=== PATIENT | male | born 1965 | race Caucasian/White ===

== ENCOUNTER 2017-06-04 13:51 | Observation (INO) | payer SELFPAY ==
[2017-06-04] MEDS ORDERED: Ketorolac 30 MG/ML SDV IVPUSH ONE (14:02)
[2017-06-04] MEDS ORDERED: Sodium Chloride 0.9% 1,000 ML IV ONE (14:03)
--- NOTE | 2017-06-04 14:04 | EDM.PDOC ---
ED HPI GENERAL MEDICAL PROBLEM - General Chief Complaint: Back Pain or Injury Stated Complaint: BACK PAIN Time Seen by Provider: 06/04/17 14:03 Source of Information: Reports: Patient - History of Present Illness INITIAL COMMENTS - FREE TEXT/NARRATIVE: HISTORY AND PHYSICAL: History of present illness: [Patient presents with low back pain has history of mild intermittent low back pain with no formal medical therapy therapy, it was bothering him somewhat last night prior to bed upon awakening this morning he had 10 out of 10 nonradiating low back pain much difficulty getting to the bathroom today ultimately coming in by ambulance due to pain, pain worsened by movement 5 out of 10 at rest 10 out of 10 with minimal movement nonradiating no footdrop saddle anesthesia bowel or urine symptoms no Injury or traumaPer patient ] Review of systems: As per history of present illness and below otherwise all systems reviewed and negative. Past medical history: As per history of present illness and as reviewed below otherwise noncontributory. Surgical history: As per history of present illness and as reviewed below otherwise noncontributory. Social history: No reported history of drug or alcohol abuse. Family history: As per history of present illness and as reviewed below otherwise noncontributory. Physical exam: HEENT: Atraumatic, normocephalic, pupils reactive, negative for conjunctival pallor or scleral icterus, mucous membranes moist, throat clear, neck supple, nontender, trachea midline. Lungs: Clear to auscultation, breath sounds equal bilaterally, chest nontender. Heart: S1S2, regular, negative for clicks, rubs, or JVD. Abdomen: Soft, nondistended, nontender. Negative for masses or hepatosplenomegaly. Negative for costovertebral tenderness. Pelvis: Stable nontender. Genitourinary: Deferred. Rectal: Deferred. Extremities: Atraumatic, negative for cords or calf pain. Neurovascular unremarkable. Neuro: Awake, alert, oriented. Cranial nerves II through XII unremarkable. Cerebellum unremarkable. Motor and sensory unremarkable throughout. Exam nonfocal. Diagnostics: [Lumbar spine ] Therapeutics: [1 L normal saline bolus Toradol 30 mg IV Norflex 60 mg IV ] Impression: Intractable pain [ low back pain ] Definitive disposition and diagnosis as appropriate pending reevaluation and review of above. back Pain Score (Numeric/FACES): 4 - Related Data Allergies Allergy/AdvReac Type Severity Reaction Status Date / Time No Known Allergies Allergy Verified 06/04/17 13:56 Home Meds: Home Meds Albuterol Sulfate [Albuterol Sulfate HFA] 1 - 2 inh INH PRN 01/12/14 [History] Losartan/Hydrochlorothiazide [Losartan-HCTZ 100-25 MG] 1 tab PO BRK 01/12/14 [ History] Past Medical History Cardiovascular History: Reports: Hypertension Musculoskeletal History: Reports: Back Pain, Chronic - Past Surgical History GI Surgical History: Reports: Hernia Repair/Other Social & Family History - Family History Family Medical History: Unobtainable - Tobacco Use Smoking Status *Q: Current Every Day Smoker Years of Tobacco use: 40 Packs/Tins Daily: 1 - Caffeine Use Caffeine Use: Reports: Coffee, Energy Drinks, Soda - Alcohol Use Days Per Week of Alcohol Use: 7 Number of Drinks Per Day: 6 Total Drinks Per Week: 42 - Recreational Drug Use Recreational Drug Use: Yes Drug Use in Last 12 Months: Yes Recreational Drug Type: Reports: Marijuana/Hashish Recreational Drug Use Frequency: Weekly ED ROS GENERAL - Review of Systems Review Of Systems: ROS reveals no pertinent complaints other than HPI. ED EXAM, GENERAL - Physical Exam Exam: See Below Course - Vital Signs Last Recorded V/S: Last Vital Signs Temp 96.9 F 06/04/17 13:53 Pulse 73 06/04/17 13:53 Resp 18 06/04/17 13:53 BP 189/106 H 06/04/17 13:53 Pulse Ox 97 06/04/17 13:53 - Orders/Labs/Meds Meds: Medications Discontinued Medications Generic Name Dose Route Start Last Admin Trade Name Timo PRN Reason Stop Dose Admin Sodium Chloride 1,000 mls @ 999 mls/hr 06/04/17 14:03 06/04/17 14:11 Normal Saline IV 06/04/17 15:03 999 mls/hr STAT ONE Administration Ketorolac Tromethamine 30 mg 06/04/17 14:02 06/04/17 14:10 Toradol IVPUSH 06/04/17 14:03 30 mg ONETIME ONE Administration Orphenadrine Citrate 60 mg 06/04/17 14:02 06/04/17 14:11 Norflex IV 06/04/17 14:03 60 mg NOW STA Administration Departure - Departure Time of Disposition: 15:59 Disposition: Refer to Observation Condition: Fair Clinical Impression: Intractable pain - Discharge Information Referrals: PCP,None [Primary Care Provider] - Forms: ED Department Discharge
--- NOTE | 2017-06-04 15:16 | CR ---
EXAMINATION: Lumbar spine HISTORY: Pain COMPARISON: None TECHNIQUE: AP and lateral view FINDINGS: The lumbar spinal alignment is normal. The vertebral body heights appear well maintained. M ild marginal osteophytes. SI joints are symmetric. Moderate joint space narrowing and subchondral scl erosis and cystic change noted within the right hip. No fracture or acute osseous or metallic. IMPRESSION: 1. Mild degenerative changes noted within the lumbar spine and moderately within the right hip.
[2017-06-04] MEDS ORDERED: Ondansetron 4 MG/2 ML SDV IVPUSH PRN (18:35)
[2017-06-04] MEDS ORDERED: Sodium Chloride 0.9% 10 ML Syringe FLUSH PRN (18:35)
[2017-06-04] MEDS ORDERED: Sodium Chloride 0.9% 2.5 ML Syringe FLUSH PRN (18:35)
[2017-06-04] MEDS ORDERED: Acetaminophen/HYDROcodone 325-5 MG Tab PO PRN (18:38)
[2017-06-04] MEDS ORDERED: SILDENAFIL 100 MG PO PRN (18:38)
[2017-06-04] MEDS ORDERED: Enoxaparin 40 MG/0.4 ML Syringe SUBCUT SCH (18:45)
[2017-06-04] MEDS: Cyclobenzaprine 10 MG Tab PO PRN (18:50)
[2017-06-04] MEDS: Acetaminophen/HYDROcodone 325-5 MG Tab PO PRN (18:50)
[2017-06-04] MEDS ORDERED: Albuterol/Ipratropium 3.0-0.5 MG/3 ML Neb Soln NEB PRN (19:12)
[2017-06-04 19:27] LABS: CHLORIDE,CL 106 mmol/L (98-107); SODIUM,NA 139 mmol/L (136-148)
[2017-06-04] MEDS: Famotidine 20 MG Tab PO SCH (20:46)
[2017-06-04] MEDS: methylPREDNISolone Sodium Succinate 40 MG/1 ML SDV IVPUSH SCH (20:46)
[2017-06-04] MEDS ORDERED: Ketorolac 15 MG/ML SDV IVPUSH PRN (22:00)
[2017-06-05] MEDS: methylPREDNISolone Sodium Succinate 40 MG/1 ML SDV IVPUSH SCH ×3 (01:33→14:06)
[2017-06-05] MEDS: Cyclobenzaprine 10 MG Tab PO PRN (06:30)
[2017-06-05] MEDS: Acetaminophen/HYDROcodone 325-5 MG Tab PO PRN ×2 (06:30→14:06)
[2017-06-05] MEDS ORDERED: Hydrochlorothiazide/Losartan 12.5-50 mg Tab PO SCH (08:00)
[2017-06-05] MEDS: Famotidine 20 MG Tab PO SCH (08:14)
--- NOTE | 2017-06-05 11:29 | PCM.HP ---
H&P History of Present Illness - General Date of Service: 06/04/17 Admit Problem/Dx: Admission Diagnosis/Problem Admission Diagnosis/Problem Severe back pain radiating down the legs Source of Information: Patient - History of Present Illness Initial Comments - Free Text/Narative: Patient 51 y old man with PMhx of hypertension, obesity, asthma , presented to hospital due to severe back pain , patient couldn't get out of bed today. His back pain started 2 weeks ago when he slept on a couch in his daughter's house. Pain is severe , radiating in both legs.Denies any problems with bm , urinations. No fever , no leg weakness , no history of trauma. He also c/o cough productive of green phlegm and wheezing. Onset of Symptoms: Reports: Gradual Duration of Symptoms: Reports: Week(s): Location: Reports: Back Quality: Reports: Throbbing back Pain Score (Numeric/FACES): 6 - Related Data Allergies/Adverse Reactions: Allergies Allergy/AdvReac Type Severity Reaction Status Date / Time No Known Allergies Allergy Verified 06/04/17 13:56 Home Medications: Home Meds Losartan/Hydrochlorothiazide [Losartan-HCTZ 100-25 MG] 100 mg PO BRK 01/12/14 [ History] Hydrocodone/Acetaminophen [Hydrocodon-Acetaminophen 5-325] 5 mg PO Q4H PRN 06/04 [History] Sildenafil [Viagra] 100 mg PO DAILY PRN 06/04/17 [History] Acetaminophen/HYDROcodone [[place] 325-5 MG] 2 tab PO Q4H PRN #80 tablet 06/05/17 [Rx] Albuterol [IJD: Albuterol HFA] 1 puff INH Q4H PRN 30 Days #1 inhaler 06/05/17 [ Rx] Cyclobenzaprine [Flexeril] 10 mg PO TID PRN 10 Days #30 tablet 06/05/17 [Rx] Famotidine [Pepcid] 20 mg PO DAILY 30 Days #30 tablet 06/05/17 [Rx] Fluticasone/Salmeterol [Advair 250-50] 2 puff INH BID #1 diskus 06/05/17 [Rx] Minocycline [Minocin] 50 mg PO BID 10 Days #20 cap 06/05/17 [Rx] Naproxen 500 gm MC BID 10 Days #40 tab 06/05/17 [Rx] Past Medical History Cardiovascular History: Reports: Hypertension Respiratory History: Reports: Asthma Musculoskeletal History: Reports: Back Pain, Chronic - Past Surgical History GI Surgical History: Reports: Hernia Repair/Other Social & Family History - Family History Family Medical History: Unobtainable - Tobacco Use Smoking Status *Q: Current Every Day Smoker Years of Tobacco use: 40 Packs/Tins Daily: 1 Used Tobacco, but Quit: No - Caffeine Use Caffeine Use: Reports: Coffee, Energy Drinks, Soda - Alcohol Use Days Per Week of Alcohol Use: 7 Number of Drinks Per Day: 6 Total Drinks Per Week: 42 Date of Last Drink: 06/03/17 Time of Last Drink: 20:00 - Recreational Drug Use Recreational Drug Use: Yes Drug Use in Last 12 Months: Yes Recreational Drug Type: Reports: Marijuana/Hashish Recreational Drug Use Frequency: Weekly H&P Review of Systems - Review of Systems: Review Of Systems: See Below General: Reports: No Symptoms HEENT: Reports: Other (facial rash ) Pulmonary: Reports: Wheezing, Cough, Sputum Cardiovascular: Reports: No Symptoms Gastrointestinal: Reports: No Symptoms Genitourinary: Reports: No Symptoms Musculoskeletal: Reports: Back Pain Skin: Reports: Rash (face) Psychiatric: Reports: No Symptoms Exam - Exam Exam: See Below - Vital Signs Vital Signs: Last Vital Signs Temp 98.0 F 06/05/17 07:39 Pulse 88 06/05/17 09:18 Resp 18 06/05/17 07:39 BP 148/95 H 06/05/17 09:18 Pulse Ox 92 L 06/05/17 09:18 Weight: 220 lb - Exam General: Alert, Oriented HEENT: Conjunctiva Clear Neck: Supple, Trachea Midline Lungs: Decreased Breath Sounds, Wheezing Cardiovascular: Regular Rate, Regular Rhythm, Normal S1, Normal S2 - Patient Data Lab Results Last 24 hrs: Laboratory Results - last 24 hr 06/04/17 06/04/17 Range/Units 18:52 18:52 WBC 8.29 (4.0-11.0) K/uL RBC 4.85 (4.50-5.90) M/uL Hgb 16.1 (13.0-17.0) g/dL Hct 43.1 (38.0-50.0) % MCV 88.9 (80.0-98.0) fL MCH 33.2 H (27.0-32.0) pg MCHC 37.4 H (31.0-37.0) g/dL RDW Std Deviation 40.5 (28.0-62.0) fl RDW Coeff of Femi 13 (11.0-15.0) % Plt Count 139 L (150-400) K/uL MPV 10.20 (7.40-12.00) fL Neut % (Auto) 61.8 (48.0-80.0) % Lymph % (Auto) 25.7 (16.0-40.0) % Hood % (Auto) 7.4 (0.0-15.0) % Eos % (Auto) 4.3 (0.0-7.0) % Baso % (Auto) 0.8 (0.0-1.5) % Neut # (Auto) 5.1 (1.4-5.7) K/uL Lymph # (Auto) 2.1 (0.6-2.4) K/uL Hood # (Auto) 0.6 (0.0-0.8) K/uL Eos # (Auto) 0.4 (0.0-0.7) K/uL Baso # (Auto) 0.1 (0.0-0.1) K/uL Nucleated RBC % 0.0 /100WBC Nucleated RBCs # 0 K/uL Sodium 139 (136-148) mmol/L Potassium 3.0 L (3.5-5.1) mmol/L Chloride 106 (98-107) mmol/L Carbon Dioxide 23.8 (21.0-32.0) mmol/L BUN 10 (7.0-18.0) mg/dL Creatinine 0.9 (0.8-1.3) mg/dL Est Cr Clr Drug Dosing 100.26 mL/min Estimated GFR (MDRD) > 60.0 ml/min Glucose 121 H (74-106) mg/dL Calcium 8.9 (8.5-10.1) mg/dL Result Diagrams: 06/04/17 18:52 06/04/17 18:52 Imaging Impressions Last 24 hrs: lumbar spine x ray : mild degenerative changes in the lumbar spine and moderate arthritis in the right hip - Problem List (1) Arthritis of right hip SNOMED Code(s): 93982377 ICD Code: M16.11 - UNILATERAL PRIMARY OSTEOARTHRITIS, RIGHT HIP Status: Acute Current Visit: Yes Problem List Initiated/Reviewed/Updated: Yes Orders Last 24hrs: Active Orders 24 hr Category Date Time Status Patient Status [ADT] Routine ADT 06/04/17 18:35 Active Oxygen Therapy [RC] PRN Care 06/04/17 18:35 Active RT Aerosol Therapy [RC] ASDIRECTED Care 06/04/17 19:12 Active Up ad [place]onna [RC] ASDIRECTED Care 06/04/17 18:35 Active Vital Signs [RC] Q4H Care 06/04/17 18:35 Active PT Evaluation and Treatment [CONS] Routine Cons 06/04/17 18:35 Active 2 Gram Sodium Diet [DIET] Diet 06/04/17 Dinner Active Lumbar Spine Comp wo Cont [MR] Routine Exams 06/04/17 19:12 Ordered Acetaminophen/HYDROcodone [[place] 325-5 MG] Med 06/04/17 18:38 Active 1 tab PO Q4H PRN Acetaminophen/HYDROcodone [[place] 325-5 MG] Med 06/04/17 18:35 Active 2 tab PO Q4H PRN Albuterol/Ipratropium [DuoNeb 3.0-0.5 MG/3 ML] Med 06/04/17 19:12 Active 3 ml NEB Q4HRRT PRN Cyclobenzaprine [Flexeril] Med 06/04/17 18:38 Active 10 mg PO TID PRN Famotidine [Pepcid] Med 06/04/17 19:15 Active 20 mg PO DAILY Hydrochlorothiazide/Losartan [Hyzaar 50-12.5 MG] Med 06/05/17 08:00 Active 2 tab PO BRK Ketorolac [Toradol] Med 06/04/17 22:00 Active 30 mg IVPUSH Q8H PRN Minocycline [Minocin] Med 06/05/17 09:00 Active 50 mg PO BID Ondansetron [Zofran] Med 06/04/17 18:35 Active 4 mg IVPUSH Q4H PRN Patient's Own Medication [Ptom] Med 06/04/17 18:38 Active 1 each PO DAILY PRN Sodium Chloride 0.9% [Saline Flush] Med 06/04/17 18:35 Active 10 ml FLUSH ASDIRECTED PRN Sodium Chloride 0.9% [Saline Flush] Med 06/04/17 18:35 Active 2.5 ml FLUSH ASDIRECTED PRN methylPREDNISolone Sod Succ [Solu-MEDROL] Med 06/04/17 19:00 Active 40 mg IVPUSH Q6H Peripheral IV Insertion Adult [OM.PC] Routine Oth 06/04/17 18:35 Ordered Resuscitation Status Routine Resus Stat 06/04/17 18:35 Ordered Medication Orders Hydrocodone Bitart/Acetaminophen ([place] 325-5 Mg) 2 tab PO Q4H PRN PRN Reason: Pain (moderate 4-6) Last Admin: 06/05/17 06:30 Dose: 2 tab Admin: 06/04/17 18:50 Dose: 2 tab Hydrocodone Bitart/Acetaminophen ([place] 325-5 Mg) 1 tab PO Q4H PRN PRN Reason: Pain Albuterol/Ipratropium (Duoneb 3.0-0.5 Mg/3 Ml) 3 ml NEB Q4HRRT PRN PRN Reason: sob Cyclobenzaprine HCl (Flexeril) 10 mg PO TID PRN PRN Reason: back pain Last Admin: 06/05/17 06:30 Dose: 10 mg Admin: 06/04/17 18:50 Dose: 10 mg Famotidine (Pepcid) 20 mg PO DAILY [facility] Last Admin: 06/05/17 08:14 Dose: 20 mg Admin: 06/04/17 20:46 Dose: 20 mg HCTZ/Losartan Potassium (Hyzaar 50-12.5 Mg) 2 tab PO BRK [facility] Last Admin: 06/05/17 08:14 Dose: 2 tab Ketorolac Tromethamine (Toradol) 30 mg IVPUSH Q8H PRN PRN Reason: Pain Stop: 06/09/17 22:01 Methylprednisolone Sodium Succinate (Solu-Medrol) 40 mg IVPUSH Q6H [facility] Last Admin: 06/05/17 06:25 Dose: 40 mg Admin: 06/05/17 01:33 Dose: 40 mg Admin: 06/04/17 20:46 Dose: 40 mg Minocycline HCl (Minocin) 50 mg PO BID [facility] Last Admin: 06/05/17 10:19 Dose: 50 mg Ondansetron HCl (Zofran) 4 mg IVPUSH Q4H PRN PRN Reason: Nausea Sildenafil [Viagra] (100 Mg) 1 each PO DAILY PRN PRN Reason: Other Sodium Chloride (Saline Flush) 10 ml FLUSH ASDIRECTED PRN PRN Reason: Keep Vein Open Sodium Chloride (Saline Flush) 2.5 ml FLUSH ASDIRECTED PRN PRN Reason: Keep Vein Open Assessment/Plan Comment:: assessment and plan 1)sciatica radiating in both legs - will admit patient to medical surgical floor , will start patient on toradol 30 grams iv q 6 h , narco 325/5 mg po q 4 h prn for pain , flexeryl 10 mg po tid , physical therapy consult 2)Copd exac- will give patient solumedrol iv , advair nebulizer treatment , duoneb nebulizer treatment minocycline 50 mg po Bid 3) Rosea : minocycline 50 mg po bid 4) DVT profilaxis- heparin sq
[2017-06-05 12:17] VITALS: BP 143/90
--- NOTE | 2017-06-05 13:06 | PCM.DCSUM1 ---
Discharge Summary - Discharge Data Discharge Date: 06/05/17 Discharge Disposition: Home, Self-Care 01 Condition: Good - Patient Summary/Data Consults: Consultations 06/04/17 18:35 PT Evaluation and Treatment [CONS] Routine Hospital Course: Patient admitted in the hospital with severe back pain , unable to get out of bed , pain started 2 weeks ago and was localized in the lower back. He was treated in the hospital with toradol iv , pain medication and muscle relaxants . Patient pain improved , had physical therapy and recommended he should walk with one point cane. He also had MRI of the back , results pending . X ray lumbar showed mild arthritis of the back and moderate arthritis of the right hip. Patient was discharged home to f/up with PCP and with orthopedic doctor He is also a smoker and had wheezing and cough productive of green phlegm and was treated with iv Solumedrol and nebulizer treatment and was started on Minoycline 50 mg po BID , for COPD exacerbation , and also to cover for facial rosacea. Patient was discharged home with Advair and Albuterol inhaler and prednisone taper , minocycline po , f/up with PCP - Patient Instructions Diet: Low Sodium Activity: As Tolerated Driving: May Drive Today Showering/Bathing: June Shower - Discharge Plan Prescriptions/Med Rec: Acetaminophen/HYDROcodone [[place] 325-5 MG] 2 tab PO Q4H PRN #80 tablet PRN Reason: Pain (Moderate 4-6) Albuterol [IJD: Albuterol HFA] 1 puff INH Q4H PRN 30 Days #1 inhaler PRN Reason: sob Cyclobenzaprine [Flexeril] 10 mg PO TID PRN 10 Days #30 tablet PRN Reason: back pain Famotidine [Pepcid] 20 mg PO DAILY 30 Days #30 tablet Fluticasone/Salmeterol [Advair 250-50] 2 puff INH BID #1 diskus Minocycline [Minocin] 50 mg PO BID 10 Days #20 cap Naproxen 500 gm MC BID 10 Days #40 tab Home Medications: Home Meds Losartan/Hydrochlorothiazide [Losartan-HCTZ 100-25 MG] 100 mg PO BRK 01/12/14 [ History] Hydrocodone/Acetaminophen [Hydrocodon-Acetaminophen 5-325] 5 mg PO Q4H PRN 06/04 [History] Sildenafil [Viagra] 100 mg PO DAILY PRN 06/04/17 [History] Acetaminophen/HYDROcodone [[place] 325-5 MG] 2 tab PO Q4H PRN #80 tablet 06/05/17 [Rx] Albuterol [IJD: Albuterol HFA] 1 puff INH Q4H PRN 30 Days #1 inhaler 06/05/17 [ Rx] Cyclobenzaprine [Flexeril] 10 mg PO TID PRN 10 Days #30 tablet 06/05/17 [Rx] Famotidine [Pepcid] 20 mg PO DAILY 30 Days #30 tablet 06/05/17 [Rx] Fluticasone/Salmeterol [Advair 250-50] 2 puff INH BID #1 diskus 06/05/17 [Rx] Minocycline [Minocin] 50 mg PO BID 10 Days #20 cap 06/05/17 [Rx] Naproxen 500 gm MC BID 10 Days #40 tab 06/05/17 [Rx] Patient Handouts: Acetaminophen; Hydrocodone tablets or capsules, Naproxen; Sumatriptan tablets, Cyclobenzaprine tablets, Albuterol inhalation aerosol, Minocycline tablets or capsules, Fluticasone; Salmeterol inhalation aerosol Referrals: Carmen Murphy MD [Physician] - Jack Browne MD [Physician] - - Discharge Summary/Plan Comment DC Time >30 min.: Yes - General Info Date of Service: 06/05/17 Admission Dx/Problem (Free Text: Admission Diagnosis/Problem Admission Diagnosis/Problem Severe back pain radiating down the legs - Review of Systems General: Reports: No Symptoms HEENT: Reports: No Symptoms Pulmonary: Reports: No Symptoms, Cough Cardiovascular: Reports: No Symptoms Gastrointestinal: Reports: No Symptoms Genitourinary: Reports: No Symptoms Musculoskeletal: Reports: No Symptoms, Back Pain Skin: Reports: No Symptoms Neurological: Reports: No Symptoms Psychiatric: Reports: No Symptoms - Patient Data Vitals - Most Recent: Last Vital Signs Temp 97.8 F 06/05/17 12:00 Pulse 83 06/05/17 12:00 Resp 16 06/05/17 12:00 BP 143/90 H 06/05/17 12:00 Pulse Ox 91 L 06/05/17 12:00 Weight - Most Recent: 220 lb I&O - Last 24 hours: Intake & Output 06/04/17 06/05/17 06/05/17 22:59 06:59 14:59 Intake Total 300 Balance 300 Lab Results - Last 24 hrs: Laboratory Results - last 24 hr 06/04/17 06/04/17 Range/Units 18:52 18:52 WBC 8.29 (4.0-11.0) K/uL RBC 4.85 (4.50-5.90) M/uL Hgb 16.1 (13.0-17.0) g/dL Hct 43.1 (38.0-50.0) % MCV 88.9 (80.0-98.0) fL MCH 33.2 H (27.0-32.0) pg MCHC 37.4 H (31.0-37.0) g/dL RDW Std Deviation 40.5 (28.0-62.0) fl RDW Coeff of Femi 13 (11.0-15.0) % Plt Count 139 L (150-400) K/uL MPV 10.20 (7.40-12.00) fL Neut % (Auto) 61.8 (48.0-80.0) % Lymph % (Auto) 25.7 (16.0-40.0) % [place] % (Auto) 7.4 (0.0-15.0) % Eos % (Auto) 4.3 (0.0-7.0) % Baso % (Auto) 0.8 (0.0-1.5) % Neut # (Auto) 5.1 (1.4-5.7) K/uL Lymph # (Auto) 2.1 (0.6-2.4) K/uL [place] # (Auto) 0.6 (0.0-0.8) K/uL Eos # (Auto) 0.4 (0.0-0.7) K/uL Baso # (Auto) 0.1 (0.0-0.1) K/uL Nucleated RBC % 0.0 /100WBC Nucleated RBCs # 0 K/uL Sodium 139 (136-148) mmol/L Potassium 3.0 L (3.5-5.1) mmol/L Chloride 106 (98-107) mmol/L Carbon Dioxide 23.8 (21.0-32.0) mmol/L BUN 10 (7.0-18.0) mg/dL Creatinine 0.9 (0.8-1.3) mg/dL Est Cr Clr Drug Dosing 100.26 mL/min Estimated GFR (MDRD) > 60.0 ml/min Glucose 121 H (74-106) mg/dL Calcium 8.9 (8.5-10.1) mg/dL Med Orders - Current: Current Medications Hydrocodone Bitart/Acetaminophen ([place] 325-5 Mg) 2 tab PO Q4H PRN PRN Reason: Pain (moderate 4-6) Last Admin: 06/05/17 06:30 Dose: 2 tab Hydrocodone Bitart/Acetaminophen ([place] 325-5 Mg) 1 tab PO Q4H PRN PRN Reason: Pain Albuterol/Ipratropium (Duoneb 3.0-0.5 Mg/3 Ml) 3 ml NEB Q4HRRT PRN PRN Reason: sob Cyclobenzaprine HCl (Flexeril) 10 mg PO TID PRN PRN Reason: back pain Last Admin: 06/05/17 06:30 Dose: 10 mg Famotidine (Pepcid) 20 mg PO DAILY [facility] Last Admin: 06/05/17 08:14 Dose: 20 mg HCTZ/Losartan Potassium (Hyzaar 50-12.5 Mg) 2 tab PO BRK [facility] Last Admin: 06/05/17 08:14 Dose: 2 tab Ketorolac Tromethamine (Toradol) 30 mg IVPUSH Q8H PRN PRN Reason: Pain Stop: 06/09/17 22:01 Methylprednisolone Sodium Succinate (Solu-Medrol) 40 mg IVPUSH Q6H [facility] Last Admin: 06/05/17 06:25 Dose: 40 mg Minocycline HCl (Minocin) 50 mg PO BID [facility] Last Admin: 06/05/17 10:19 Dose: 50 mg Ondansetron HCl (Zofran) 4 mg IVPUSH Q4H PRN PRN Reason: Nausea Sildenafil [Viagra] (100 Mg) 1 each PO DAILY PRN PRN Reason: Other Sodium Chloride (Saline Flush) 10 ml FLUSH ASDIRECTED PRN PRN Reason: Keep Vein Open Sodium Chloride (Saline Flush) 2.5 ml FLUSH ASDIRECTED PRN PRN Reason: Keep Vein Open Discontinued Medications Enoxaparin Sodium (Lovenox) 40 mg SUBCUT Q24H [facility] Last Admin: 06/04/17 20:30 Dose: Not Given Sodium Chloride (Normal Saline) 1,000 mls @ 999 mls/hr IV STAT ONE Stop: 06/04/17 15:03 Last Admin: 06/04/17 14:11 Dose: 999 mls/hr Ketorolac Tromethamine (Toradol) 30 mg IVPUSH ONETIME ONE Stop: 06/04/17 14:03 Last Admin: 06/04/17 14:10 Dose: 30 mg Minocycline HCl (Minocin) 50 mg PO BID [facility] Last Admin: 06/05/17 09:44 Dose: Not Given Orphenadrine Citrate (Norflex) 60 mg IV NOW STA Stop: 06/04/17 14:03 Last Admin: 06/04/17 14:11 Dose: 60 mg Minocycline 50 Mg (Cap) 50 each PO BID ODALIS - Exam General: Reports: Alert, Oriented HEENT: Reports: Pupils Equal, Pupils Reactive Neck: Reports: Supple, Trachea Midline, No JVD, No Thyromegaly Lungs: Reports: Clear to Auscultation, Decreased Breath Sounds Cardiovascular: Reports: Regular Rate, Regular Rhythm, No Murmurs, Irregular Rhythm GI/Abdominal Exam: Normal Bowel Sounds, Soft, Non-Tender, No Distention Extremities: Normal Inspection Skin: Reports: Warm, Dry, Intact Neurological: Reports: No New Focal Deficit Psy/Mental Status: Reports: Alert, Normal Affect, Normal Mood
[2017-06-05] MEDS ORDERED: Potassium Chloride 20 MEQ Tab.ER PO ONE (14:23)
--- NOTE | 2017-06-07 11:38 | MR ---
EXAM DATE: 06/04/17 PATIENT'S AGE: 51 Patient: MITCHELL UNGER Facility: [place], [place] Site . Site : [id number] Study: MRI Spine Lumbar [id number] 2:57:19 PM Ordering Physician: Stephon Whitlock Final Report: HISTORY: Low back pain. TECHNIQUE: Sagittal T1, T2 and STIR, axial T1 and T2 weighted images were obtained of the lumbar spine without contrast administration. COMPARISON: No prior. FINDINGS: The conus medullaris terminates in normal position. The distal cord is of normal signal intensity and morphology. There is no intradural mass. Benign vertebral body hemangioma present within L1 as seen on sagittal T1 image #13 of series 301. There is no acute lumbar fracture. - At L5-S1, loss of disc height. Large annular disc bulge. Combination of type 1 and type 2 degenerative endplate changes. No impingement on the S1 nerve roots within the lateral recesses. The bilateral neural foramina are mildly stenotic. At L4-L5, mild disc desiccation. Shallow left foraminal protrusion. Mild left foraminal stenosis. The central canal and right neural foramina are patent. Facet joint degenerative arthrosis. At L3-L4, loss of disc height with disc desiccation. Posterior annular high- intensity zone with associated small central disc extrusion. Mild ventral thecal sac effacement with mild central canal narrowing. Slight inferior foraminal effacement without significant foraminal stenosis. At L2-L3, disc desiccation. No central canal or foraminal stenosis. At L1-L2, mild disc desiccation. No canal or foraminal stenosis. At T12-L1, mild disc desiccation. No canal or foraminal stenosis. 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 There are degenerative changes of the sacroiliac joints. IMPRESSION: 1. Degenerative disc and facet joint disease. 2. At the L5-S1, there is a large annular disc bulge. Mild bilateral foraminal stenosis. Combination of type 1 and type 2 degenerative endplate changes. 3. At L3-L4, small central disc extrusion with ventral thecal sac effacement and mild canal stenosis. Mild inferior foraminal effacement without impingement on exiting nerve roots. 4. At L4-L5, mild left foraminal stenosis. Dictated by Enrico Hernandez MD @ 06/05/2017 3:23:28 PM Dictated by: Enrico Hernandez MD @ 06/05/2017 15:23:33 (Electronic Signature) Report Signed by Proxy. FUNMILAYO
== END 2017-06-05 15:40 | disposition home or self-care (01) ==
LOC: MW.ED 13:51 → MW.MS 16:00
PROVIDERS: ADMIT Internal Medicine; ATTEND Internal Medicine
DX: M54.32 Sciatica, left side (principal); M54.31 Sciatica, right side; L42 Pityriasis rosea; M16.11 Unilateral primary osteoarthritis, right hip; I10 Essential (primary) hypertension; E66.9 Obesity, unspecified; G89.29 Other chronic pain; F17.210 Nicotine dependence, cigarettes, uncomplicated; J44.1 Chronic obstructive pulmonary disease with (acute) exacerbation; Z79.899 Other long term (current) drug therapy
CPT/HCPCS: 36415; 72100; 72148; 80048; 85025; 96361; 96374; 96375; 97161; 99285; A9270; J1885; J2360; J2920; J7040; 96376; G0378

== ENCOUNTER 2019-01-28 22:32 | Emergency (ER) | payer SELFPAY ==
--- NOTE | 2019-01-28 22:47 | EDM.PDOC ---
ED HPI GENERAL MEDICAL PROBLEM - General Chief Complaint: General Stated Complaint: LAW ENFORCEMENT Time Seen by Provider: 01/28/19 22:39 - History of Present Illness INITIAL COMMENTS - FREE TEXT/NARRATIVE: HISTORY AND PHYSICAL: History of present illness: Patient is a 53-year-old male with a known history of hypertension who follows with the nurse practitioner at [facility] and presents with loss enforcement for medical clearance exam due to his history of hypertension. The patient says he is compliant with his medication but he has been eating a lot of salty foods lately and is aware that his blood pressure is slightly elevated here in the ED. He denies any complaints of chest pain shortness of breath headache numbness tingling and says he would not be here if it were not due to the police and fire dispatcher's insistence. He did drink beer earlier today and admits to that and did eat food. He has no other systemic complaints and says he will follow-up with his provider in the clinic. There was no trauma involving the patient's arrest Review of systems: As per history of present illness and below otherwise all systems reviewed and negative. Past medical history: As per history of present illness and as reviewed below otherwise noncontributory. Surgical history: As per history of present illness and as reviewed below otherwise noncontributory. Social history: No reported history of drug or alcohol abuse. Family history: As per history of present illness and as reviewed below otherwise noncontributory. Physical exam: Old developed well-nourished man who is nontoxic and interactive with me in the ED speaking clearly. Vital signs are noted by me HEENT: Atraumatic, normocephalic, pupils reactive, negative for conjunctival pallor or scleral icterus, mucous membranes moist, throat clear, neck supple, nontender, trachea midline. Lungs: Clear to auscultation, breath sounds equal bilaterally, chest nontender. Heart: S1S2, regular rate and rhythm no overt murmurs Abdomen: Soft, nondistended, nontender. NABS. Negative for costovertebral tenderness. Pelvis: Stable nontender. Genitourinary: Deferred. Rectal: Deferred. Extremities: Atraumatic, negative for cords or calf pain. Neurovascular unremarkable. no Pedal edema or leg asymmetry Neuro: Awake, alert, oriented. Cranial nerves II through XII unremarkable. Cerebellum unremarkable. Motor and sensory unremarkable throughout. Exam nonfocal. Diagnostics: [] Therapeutics: [] I did discuss with the patient the need to follow-up with his provider in the clinic and to eliminate salty and sodium rich foods. He might need a medication adjustment which she states understanding of. His provider in the clinic and determine what needs to be done further if his blood pressure remains elevated Impression: Encounter for medical screening exam for incarceration, history of hypertension Definitive disposition and diagnosis as appropriate pending reevaluation and review of above. - Related Data Allergies Allergy/AdvReac Type Severity Reaction Status Date / Time No Known Allergies Allergy Verified 01/28/19 22:42 Home Meds: Home Meds Losartan/Hydrochlorothiazide [Losartan-HCTZ 100-25 MG] 100 mg PO BRK 01/12/14 [ History] Hydrocodone/Acetaminophen [Hydrocodon-Acetaminophen 5-325] 5 mg PO Q4H PRN 06/04 [History] Sildenafil [Viagra] 100 mg PO DAILY PRN 06/04/17 [History] Acetaminophen/HYDROcodone [[place] 325-5 MG] 2 tab PO Q4H PRN #80 tablet 06/05/17 [Rx] Albuterol [IJD: Albuterol HFA] 1 puff INH Q4H PRN 30 Days #1 inhaler 06/05/17 [ Rx] Cyclobenzaprine [Flexeril] 10 mg PO TID PRN 10 Days #30 tablet 06/05/17 [Rx] Famotidine [Pepcid] 20 mg PO DAILY 30 Days #30 tablet 06/05/17 [Rx] Fluticasone/Salmeterol [Advair 250-50] 2 puff INH BID #1 diskus 06/05/17 [Rx] Minocycline [Minocin] 50 mg PO BID 10 Days #20 cap 06/05/17 [Rx] Naproxen 500 gm MC BID 10 Days #40 tab 06/05/17 [Rx] Past Medical History Cardiovascular History: Reports: Hypertension Respiratory History: Reports: Asthma Musculoskeletal History: Reports: Back Pain, Chronic - Past Surgical History GI Surgical History: Reports: Hernia Repair/Other Social & Family History - Family History Family Medical History: Unobtainable - Caffeine Use Caffeine Use: Reports: Coffee, Energy Drinks, Soda ED ROS GENERAL - Review of Systems Review Of Systems: Comprehensive ROS is negative, except as noted in HPI. ED EXAM, GENERAL - Physical Exam Exam: See Below (See dictation) Course - Vital Signs Last Recorded V/S: Last Vital Signs Temp 36.1 C 01/28/19 22:35 Pulse 84 01/28/19 22:35 Resp 18 01/28/19 22:35 BP 152/104 H 01/28/19 22:35 Pulse Ox 95 01/28/19 22:35 Departure - Departure Time of Disposition: 22:46 Disposition: Home, Self-Care 01 Condition: Good Clinical Impression: Encounter for medical screening examination - Discharge Information Additional Instructions: The following information is given to patients seen in the emergency department who are being discharged to home. This information is to outline your options for follow-up care. We provide all patients seen in our emergency department with a follow-up referral. The need for follow-up, as well as the timing and circumstances, are variable depending upon the specifics of your emergency department visit. If you don't have a primary care physician on staff, we will provide you with a referral. We always advise you to contact your personal physician following an emergency department visit to inform them of the circumstance of the visit and for follow-up with them and/or the need for any referrals to a consulting specialist. The emergency department will also refer you to a specialist when appropriate. This referral assures that you have the opportunity for followup care with a specialist. All of these measure are taken in an effort to provide you with optimal care, which includes your followup. Under all circumstances we always encourage you to contact your private physician who remains a resource for coordinating your care. When calling for followup care, please make the office aware that this follow-up is from your recent emergency room visit. If for any reason you are refused follow-up, please contact the [facility] emergency department at and ask to speak to the emergency department charge nurse. [address] [place] [address] Please try to avoid sodium rich foods and added salt in her diet as this will cause an elevation in your blood pressure. Continue your home meds and schedule follow-up with your provider at [facility] for reevaluation of your blood pressure as we discussed. Return to ER as needed as discussed Sepsis Event Note - Evaluation Sepsis Screening Result: No Definite Risk - Focused Exam Vital Signs: Vital Signs Temp Pulse Resp BP Pulse Ox 01/28/19 22:35 36.1 C 84 18 152/104 H 95 Date Exam was Performed: 01/28/19 Time Exam was Performed: 22:43
[2019-01-28 22:58] VITALS: BP 145/103; PULSE 83
== END 2019-01-28 22:50 | disposition home or self-care (01) ==
LOC: MW.ED 22:32
DX: Z02.89 Encounter for other administrative examinations (principal); I10 Essential (primary) hypertension; J45.909 Unspecified asthma, uncomplicated; Z79.899 Other long term (current) drug therapy
CPT/HCPCS: 82962; 99283

== ENCOUNTER 2019-04-24 10:36 | Emergency (ER) | payer SELFPAY ==
[2019-04-24] MEDS ORDERED: cefTRIAXone 1 GM Vial IM ONE (11:22)
--- NOTE | 2019-04-24 11:30 | EDM.PDOC ---
ED HPI GENERAL MEDICAL PROBLEM - General Chief Complaint: Lower Extremity Injury/Pain Stated Complaint: INJURED FOOT Time Seen by Provider: 04/24/19 10:37 Source of Information: Reports: Patient History Limitations: Reports: No Limitations - History of Present Illness INITIAL COMMENTS - FREE TEXT/NARRATIVE: HISTORY AND PHYSICAL: History of present illness: Patient is a 53-year-old male who presents to the ED today with concern of right foot redness that has been ongoing over the last 2 weeks. Patient states initially he started having blisters on the bottom of his feet which he popped. Patient states there is been some crusting around the blisters but he is also noticed redness on top of his right foot. Patient states he does have some mild pain when he presses on the area of redness. Patient states he has a history of hypertension but denies any other health history. Patient denies any trauma or injury to the foot or any other symptoms or concerns. Patient denies fever, chills, chest pain, shortness of breath, or cough. Denies headache, neck stiff ness, change in vision, syncope, or near syncope. Denies nausea, vomiting, abdominal pain, diarrhea, constipation, or dysuria. Has not noted any blood in urine or stool. Patient has been eating and drinking appropriately. Review of systems: As per history of present illness and below otherwise all systems reviewed and negative. Past medical history: As per history of present illness and as reviewed below otherwise noncontributory. Surgical history: As per history of present illness and as reviewed below otherwise noncontributory. Social history: See social history for further information Family history: As per history of present illness and as reviewed below otherwise noncontributory. Physical exam: General: Patient is alert, oriented, and in no acute distress. Patient sitting comfortably on exam table. HEENT: Atraumatic, normocephalic, pupils equal and reactive bilaterally, negative for conjunctival pallor or scleral icterus, mucous membranes moist, TMs normal bilaterally, throat clear, neck supple, nontender, trachea midline. No drooling or trismus noted. No meningeal signs. No hot potato voice noted. Lungs: Clear to auscultation, breath sounds equal bilaterally, chest nontender. Heart: S1S2, regular rate and rhythm without overt murmur Abdomen: Soft, nondistended, nontender. Negative for masses or hepatosplenomegaly. Negative for costovertebral tenderness. Pelvis: Stable nontender. Genitourinary: Deferred. Rectal: Deferred. Skin: Intact, warm, dry. No lesions or rashes noted. Extremities: There are some open blisters on the volar aspect of the right foot with some yellowish crusting but without drainage surrounding the blisters and in between the webspaces of the digits. There is an area of erythema on the lateral dorsum of the right foot with mild increase in warmth of this area without drainage, non fluctuant. Dorsalis pedis and posterior tibial pulses are grossly intact with capillary refill less than 2 seconds of the right lower extremity. Otherwise, atraumatic, negative for cords or calf pain. Neurovascular unremarkable. Neuro: Awake, alert, oriented. Cranial nerves II through XII unremarkable. Cerebellum unremarkable. Motor and sensory unremarkable throughout. Exam nonfocal. Notes: Area of cellulitis was outlined using a surgical marker. The crusting of the blisters resembles that of early impetigo. Will treat with Bactroban cream for this as well as get an antibiotic for treatment of the area of cellulitis. Discussed importance for follow-up with a primary care provider and for further eval of liver function tests. Voices understanding and is agreeable to plan of care. Denies any further questions or concerns at this time. Diagnostics: Foot XR, CBC, CMP, lactate, blood culture x 2 Therapeutics: Rocephin Prescription: Bactroban, Doxycycline, Keflex (Bactrim RX was initially sent to pharmacy but called and cancelled this RX) Impression: Cellulitis, right foot Blisters of left foot Secondary skin infection, right foot Transaminitis Plan: 1. Take medication as prescribed. You can alternate ibuprofen and Tylenol as directed for pain and discomfort. 2. Continue to monitor for signs of spreading infection as discussed. Return to the ED in 24 to 48 hours for reevaluation as discussed. 3. Follow-up with a primary care provider as discussed. Return to the ED as needed and as discussed. Definitive disposition and diagnosis as appropriate pending reevaluation and review of above. Right Foot Pain Score (Numeric/FACES): 6 - Related Data Allergies Allergy/AdvReac Type Severity Reaction Status Date / Time No Known Allergies Allergy Verified 04/24/19 11:18 Home Meds: Home Meds Losartan/Hydrochlorothiazide [Losartan-HCTZ 100-25 MG] 0 mg PO BRK 01/12/14 [ History] Albuterol [IJD: Albuterol HFA] 1 puff INH Q4H PRN 30 Days #1 inhaler 06/05/17 [ Rx] Fluticasone/Salmeterol [Advair 250-50] 2 puff INH BID #1 diskus 06/05/17 [Rx] Doxycycline [Vibramycin] 100 mg PO BID 10 Days #20 cap 04/24/19 [Rx] Mupirocin Cream [Bactroban Crm] 1 applic TOP TID 7 Days #1 tube 04/24/19 [Rx] Sulfamethoxazole/Trimethoprim [Bactrim Ds Tablet] 1 each PO BID 10 Days #20 tablet 04/24/19 [Rx] cephALEXin [Keflex] 500 mg PO Q6H 10 Days #40 cap 04/24/19 [Rx] Past Medical History Cardiovascular History: Reports: Hypertension Respiratory History: Reports: Asthma Musculoskeletal History: Reports: Back Pain, Chronic - Past Surgical History GI Surgical History: Reports: Hernia Repair/Other Social & Family History - Family History Family Medical History: Unobtainable - Caffeine Use Caffeine Use: Reports: Coffee, Energy Drinks, Soda Review of Systems - Review of Systems Review Of Systems: Comprehensive ROS is negative, except as noted in HPI. ED EXAM, GENERAL - Physical Exam Exam: See Below (See dictation) Course - Vital Signs Last Recorded V/S: Last Vital Signs Temp 97.8 F 04/24/19 11:15 Pulse 84 04/24/19 12:15 Resp 18 04/24/19 12:15 BP 120/81 04/24/19 12:15 Pulse Ox 95 04/24/19 12:15 - Orders/Labs/Meds Orders: Active Orders 24 hr Category Date Time Status CULTURE BLOOD [BC] Stat Lab 04/24/19 11:35 Received CULTURE BLOOD [BC] Stat Lab 04/24/19 11:47 Received Blood Culture x2 Reflex Set [OM.PC] Stat Oth 04/24/19 11:22 Ordered Labs: Laboratory Tests 04/24/19 04/24/19 04/24/19 Range/Units 11:35 11:35 11:35 WBC 9.09 (4.0-11.0) K/uL RBC 5.49 (4.50-5.90) M/uL Hgb 17.6 H (13.0-17.0) g/dL Hct 49.6 (38.0-50.0) % MCV 90.3 (80.0-98.0) fL MCH 32.1 H (27.0-32.0) pg MCHC 35.5 (31.0-37.0) g/dL RDW Std Deviation 43.6 (28.0-62.0) fl RDW Coeff of Femi 13 (11.0-15.0) % Plt Count 144 L (150-400) K/uL MPV 10.50 (7.40-12.00) fL Neut % (Auto) 66.9 (48.0-80.0) % Lymph % (Auto) 17.8 (16.0-40.0) % [place] % (Auto) 9.0 (0.0-15.0) % Eos % (Auto) 5.2 (0.0-7.0) % Baso % (Auto) 1.1 (0.0-1.5) % Neut # (Auto) 6.1 H (1.4-5.7) K/uL Lymph # (Auto) 1.6 (0.6-2.4) K/uL [place] # (Auto) 0.8 (0.0-0.8) K/uL Eos # (Auto) 0.5 (0.0-0.7) K/uL Baso # (Auto) 0.1 (0.0-0.1) K/uL Nucleated RBC % 0.0 /100WBC Nucleated RBCs # 0 K/uL Lactate 2.9 H* (0.20-2.00) mmol/L Sodium 140 (136-148) mmol/L Potassium 3.4 L (3.5-5.1) mmol/L Chloride 101 (98-107) mmol/L Carbon Dioxide 27.5 (21.0-32.0) mmol/L BUN 14 (7.0-18.0) mg/dL Creatinine 1.0 (0.8-1.3) mg/dL Est Cr Clr Drug Dosing 88.21 mL/min Estimated GFR (MDRD) > 60.0 ml/min Glucose 102 (74-106) mg/dL Calcium 9.3 (8.5-10.1) mg/dL Total Bilirubin 1.5 H (0.2-1.0) mg/dL AST 49 H (15-37) IU/L ALT 74 H (14-63) IU/L Alkaline Phosphatase 110 (46-116) U/L Total Protein 8.0 (6.4-8.2) g/dL Albumin 3.5 (3.4-5.0) g/dL Globulin 4.5 H (2.6-4.0) g/dL Albumin/Globulin Ratio 0.8 L (0.9-1.6) Meds: Medications Discontinued Medications Generic Name Dose Route Start Last Admin Trade Name Freq PRN Reason Stop Dose Admin Ceftriaxone Sodium/Dextrose 1 50 mls @ 100 mls/hr 04/24/19 11:41 04/24/19 12: 14 gm/ Premix IV 04/24/19 12:10 100 mls/hr ONETIME ONE Administration Departure - Departure Time of Disposition: 12:58 Disposition: Home, Self-Care 01 Clinical Impression: Secondary infection of skin, Blister of foot Cellulitis Qualifiers: Site of cellulitis: extremity Site of cellulitis of extremity: lower extremity Laterality: right Qualified Code(s): L03.115 - Cellulitis of right lower limb - Discharge Information Prescriptions: cephALEXin [Keflex] 500 mg PO Q6H 10 Days #40 cap Doxycycline [Vibramycin] 100 mg PO BID 10 Days #20 cap Mupirocin Cream [Bactroban Crm] 1 applic TOP TID 7 Days #1 tube Sulfamethoxazole/Trimethoprim [Bactrim Ds Tablet] 1 each PO BID 10 Days #20 tablet Referrals: Lilly Jimenes NP [Primary Care Provider] - Forms: ED Department Discharge Additional Instructions: The following information is given to patients seen in the emergency department who are being discharged to home. This information is to outline your options for follow-up care. We provide all patients seen in our emergency department with a follow-up referral. The need for follow-up, as well as the timing and circumstances, are variable depending upon the specifics of your emergency department visit. If you don't have a primary care physician on staff, we will provide you with a referral. We always advise you to contact your personal physician following an emergency department visit to inform them of the circumstance of the visit and for follow-up with them and/or the need for any referrals to a consulting specialist. The emergency department will also refer you to a specialist when appropriate. This referral assures that you have the opportunity for follow-up care with a specialist. All of these measure are taken in an effort to provide you with optimal care, which includes your follow-up. Under all circumstances we always encourage you to contact your private physician who remains a resource for coordinating your care. When calling for follow-up care, please make the office aware that this follow-up is from your recent emergency room visit. If for any reason you are refused follow-up, please contact the [facility] Emergency Department at and asked to speak to the emergency department charge nurse. [facility] [address] [place] [address] [id number] [address] [address] 1. Take medication as prescribed. You can alternate ibuprofen and Tylenol as directed for pain and discomfort. 2. Continue to monitor for signs of spreading infection as discussed. Return to the ED in 24 to 48 hours for reevaluation as discussed. 3. Follow-up with a primary care provider as discussed. Return to the ED as needed and as discussed. Sepsis Event Note - Evaluation Sepsis Screening Result: No Definite Risk - Focused Exam Vital Signs: Vital Signs Temp Pulse Resp BP Pulse Ox 04/24/19 12:15 84 18 120/81 95 04/24/19 11:15 97.8 F 83 20 123/95 H 96 Date Exam was Performed: 04/24/19 Time Exam was Performed: 12:57 - My Orders Last 24 Hours: My Active Orders 04/24/19 11:22 Blood Culture x2 Reflex Set [OM.PC] Stat 04/24/19 11:35 CULTURE BLOOD [BC] Stat 04/24/19 11:47 CULTURE BLOOD [BC] Stat - Assessment/Plan Last 24 Hours: My Active Orders 04/24/19 11:22 Blood Culture x2 Reflex Set [OM.PC] Stat 04/24/19 11:35 CULTURE BLOOD [BC] Stat 04/24/19 11:47 CULTURE BLOOD [BC] Stat
[2019-04-24] MEDS ORDERED: cefTRIAXone 1 GM in Premix Bag 1 BAG IV ONE (11:41)
--- NOTE | 2019-04-24 12:03 | CR ---
Right foot: 2 views of the right foot were obtained. Comparison: No previous foot exam. Slight degenerative change is noted within the MTP joint of the fifth digit. Slight deformity is noted within this joint most likely relating to old injury. Mild bunion deformity is seen. Soft tissue swelling is seen medially. No acute fracture or other abnormality is appreciated. No soft tissue air is seen. Impression: 1. Mild bunion deformity. Other findings as noted above. 2. Soft tissue swelling with no soft tissue air. Diagnostic code #2 This report was dictated in [place] Standard Time
[2019-04-24 12:55] LABS: BLOOD UREA NITROGEN,BUN 14 mg/dL (7.0-18.0); CARBON DIOXIDE,CO2 27.5 mmol/L (21.0-32.0); CHLORIDE,CL 101 mmol/L (98-107); GLUCOSE RANDOM 102 mg/dL (74-106); POTASSIUM,K 3.4 mmol/L (3.5-5.1); SODIUM,NA 140 mmol/L (136-148)
[2019-04-24 13:45] VITALS: BP 116/71; PULSE 76
== END 2019-04-24 13:29 | disposition home or self-care (01) ==
LOC: MW.ED 10:36
DX: S90.821A Blister (nonthermal), right foot, initial encounter (principal); L03.115 Cellulitis of right lower limb; I10 Essential (primary) hypertension; J45.909 Unspecified asthma, uncomplicated; Z79.899 Other long term (current) drug therapy; R74.0 Nonspecific elevation of levels of transaminase and lactic acid dehydrogenase [LDH]; X58.XXXA Exposure to other specified factors, initial encounter
CPT/HCPCS: 36415; 73620; 80053; 83605; 85025; 87040; 96365; 99283; J0696

== ENCOUNTER 2021-10-22 04:27 | Emergency (ER) | payer OTHER ==
[2021-10-22] MEDS ORDERED: Iopamidol 755 MG/ML 500 ML Multipack Bottle IVPUSH STA (05:35)
[2021-10-22 05:52] LABS: CARBON DIOXIDE,CO2 24.4 mmol/L (21.0-32.0); POTASSIUM,K 3.3 mmol/L (3.5-5.1)
[2021-10-22 07:27] VITALS: BP 136/94; PULSE 79
== END 2021-10-22 07:26 ==
LOC: MW.ED 04:27
DX: T18.9XXA Foreign body of alimentary tract, part unspecified, initial encounter (principal); F15.10 Other stimulant abuse, uncomplicated; Z20.822 Contact with and (suspected) exposure to COVID-19; Z79.899 Other long term (current) drug therapy
CPT/HCPCS: 36415; 74177; 80053; 85025; 85610; 85730; 87635; 99284; Q9967; U0002